=== PATIENT | female | born 1980 | race Caucasian/White ===

== ENCOUNTER 2023-09-29 10:41 | Emergency (ER) | payer OTHER, SELFPAY ==
[2023-09-29 10:57] VITALS: BP 222/116
[2023-09-29 11:23] VITALS: BMI 44.5
--- NOTE | 2023-09-29 11:24 | ED.GENMED ---
History of Present Illness
<Khanh Ward PA-C - Last Filed: 09/30/23 07:20>
General
Chief Complaint: Musculo-Skeletal Complaint
Time Seen by Provider: 09/29/23 11:13
Travel History
Have you had any contact with someone who has COVID-19?: No
Do you have any symptoms of coronavirus? Fever > 100 degrees, chills, cough, shortness of breath, sore throat, loss of taste or smell, muscle aches, or headache?: No
History of Present Illness
History of Present Illness:
42-year-old female presents emergency department for evaluation of right flank pain that began abruptly after eating a tenderness onset yesterday. The pain improved after taking ibuprofen last night however again worsened this morning. Pain is
pleuritic and radiates to the right scapula. Prior history of ectopic and partial salpingectomy, no other abdominal surgeries. Denies any chest pain or shortness of breath however pain again is pleuritic. Did have a recent URI
approximately 2 weeks ago
Past History
<Khanh Ward PA-C - Last Filed: 09/30/23 07:20>
Past History
ED Past Medical History: HTN
ED Past Surgical History: Gynecological (Laparoscopy for right ectopic 2009)
Social History
Tobacco: Non-smoker
Alcohol: Occasional
Personal:
Review of Systems
<Khanh Ward PA-C - Last Filed: 09/30/23 07:20>
Review of Systems
Allergies reviewed?: Yes
All Other Systems: ROS reviewed and negative except as documented in HPI and ROS
Phy Exam
<Khanh Ward PA-C - Last Filed: 09/30/23 07:20>
Physical Exam
Physical Exam:
GEN: Well appearing, NAD, WDWN
Eyes: PERRLA, EOMs intact, no scleral icterus
HENT: NCAT, oral mucosa moist, no JVD, no cervical adenopathy.
Lungs: CTAB, no wheezes, rales, rhonchi, normal chest wall excursion
Cardiac: RRR, no M/R/G, no peripheral edema. Radial pulses 2+ bilat
Abdomen: S, NT, ND, NABS, no masses or hepatosplenomegaly
Neuro: AO x 3, no focal deficits to BUE/BLE, normal sensation throughout
MSK: No gross deformity or ecchymosis. No edema. No digital clubbing
Skin: No rashes, petechiae. Normal color, no pallor or jaundice.
Psych: Calm, cooperative, proper hygiene
Course
<Khanh Ward PA-C - Last Filed: 09/30/23 07:20>
Orders/Labs/Results
Orders:
Orders
09/29/23 11:24
US Abdomen Complete/Upper Urgent
Comment:
Reason For Exam: biliary colic
09/29/23 12:28
Ketorolac [Toradol] 30 mg IM NOW STA
09/29/23 12:38
Mag Hydrox/Al Hydrox/Simeth [Maalox] 30 ml Phenobarb/Hyoscy/Atropine/Scop [] 10 ml Viscous Lidocaine 2% [Xylocaine Viscous Cup] 10 ml PO NOW
CR Chest - 2 Views Urgent
Comment:
Reason For Exam: RUQ pain/pleuritic pain
09/29/23 12:52
Mag Hydrox/Al Hydrox/Simeth [Maalox] 30 ml .ROUTE .STK-MED ONE
Phenobarb/Hyoscy/Atropine/Scop [] 10 ml .ROUTE .STK-MED ONE
09/29/23 12:53
Viscous Lidocaine 2% [Xylocaine Viscous Cup] 15 ml .ROUTE .STK-MED ONE
09/29/23 13:41
Ketorolac [Toradol] 30 mg IM NOW STA
09/29/23 13:46
Ketorolac [Toradol] 15 mg IV NOW STA
09/29/23 14:09
Complete Blood Count/With Diff Urgent
Comprehensive Metabolic Panel Urgent
HCG, Serum Qualitative Screen Urgent
Comment: HCG QUAL ADDED ON BY FLOOR 3:30PM 09-29-23
Lipase Urgent
09/29/23 15:08
D-Dimer Urgent
09/29/23 15:29
CT Chest Pe Study Urgent
Comment:
Reason For Exam: pleuritic R flank pain
09/29/23 15:33
Add On- LAB Urgent
Tests Added?: hcg qual
Abnormal Lab Results
09/29/23 09/29/23
14:09 15:08
Hgb 10.6 L g/dL
(12.0-16.0)
Hct 34.6 L %
(37.0-47.0)
MCV 67.4 L fL
(81.0-99.0)
MCH 20.7 L pg
(27.0-31.0)
MCHC 30.6 L g/dL
(33.0-37.0)
RDW 21.6 H %
(11.5-14.5)
Absolute Neuts (auto) 8.2 H 10^3/uL
(1.4-6.5)
Absolute Monos (auto) 0.8 H 10^3/uL
(0.1-0.6)
Neutrophils % 78.0 H %
(42.2-75.2)
Lymphocytes % 12.3 L %
(20.5-51.1)
D-Dimer 0.66 H ug/mlFEU
(0.00-0.50)
Sodium 133 L mmol/L
(135-145)
Potassium 3.4 L mmol/L
(3.5-5.1)
09/29/23 14:09
09/29/23 14:09
Vital Signs
Initial and Last Documented VS:
Initial Vital Signs
Temp Pulse Resp BP Pulse Ox
99.1 F 58 18 222/116 98
09/29/23 10:57 09/29/23 10:57 09/29/23 10:57 09/29/23 10:57 09/29/23 10:57
Last Documented Vital Signs
Temp Pulse Resp BP Pulse Ox
99.1 F 62 18 188/81 97
09/29/23 10:57 09/29/23 20:04 09/29/23 10:57 09/29/23 20:04 09/29/23 20:04
<YESSICA Del Toro - Last Filed: 09/29/23 19:23>
Orders/Labs/Results
Orders:
Orders
09/29/23 11:24
US Abdomen Complete/Upper Urgent
Comment:
Reason For Exam: biliary colic
09/29/23 12:28
Ketorolac [Toradol] 30 mg IM NOW STA
09/29/23 12:38
Mag Hydrox/Al Hydrox/Simeth [Maalox] 30 ml Phenobarb/Hyoscy/Atropine/Scop [] 10 ml Viscous Lidocaine 2% [Xylocaine Viscous Cup] 10 ml PO NOW
CR Chest - 2 Views Urgent
Comment:
Reason For Exam: RUQ pain/pleuritic pain
09/29/23 12:52
Mag Hydrox/Al Hydrox/Simeth [Maalox] 30 ml .ROUTE .STK-MED ONE
Phenobarb/Hyoscy/Atropine/Scop [] 10 ml .ROUTE .STK-MED ONE
09/29/23 12:53
Viscous Lidocaine 2% [Xylocaine Viscous Cup] 15 ml .ROUTE .STK-MED ONE
09/29/23 13:41
Ketorolac [Toradol] 30 mg IM NOW STA
09/29/23 13:46
Ketorolac [Toradol] 15 mg IV NOW STA
09/29/23 14:09
Complete Blood Count/With Diff Urgent
Comprehensive Metabolic Panel Urgent
HCG, Serum Qualitative Screen Urgent
Comment: HCG QUAL ADDED ON BY FLOOR 3:30PM 09-29-23
Lipase Urgent
09/29/23 15:08
D-Dimer Urgent
09/29/23 15:29
CT Chest Pe Study Urgent
Comment:
Reason For Exam: pleuritic R flank pain
09/29/23 15:33
Add On- LAB Urgent
Tests Added?: hcg qual
Abnormal Lab Results
09/29/23 09/29/23
14:09 15:08
Hgb 10.6 L g/dL
(12.0-16.0)
Hct 34.6 L %
(37.0-47.0)
MCV 67.4 L fL
(81.0-99.0)
MCH 20.7 L pg
(27.0-31.0)
MCHC 30.6 L g/dL
(33.0-37.0)
RDW 21.6 H %
(11.5-14.5)
Absolute Neuts (auto) 8.2 H 10^3/uL
(1.4-6.5)
Absolute Monos (auto) 0.8 H 10^3/uL
(0.1-0.6)
Neutrophils % 78.0 H %
(42.2-75.2)
Lymphocytes % 12.3 L %
(20.5-51.1)
D-Dimer 0.66 H ug/mlFEU
(0.00-0.50)
Sodium 133 L mmol/L
(135-145)
Potassium 3.4 L mmol/L
(3.5-5.1)
09/29/23 14:09
09/29/23 14:09
Vital Signs
Initial and Last Documented VS:
Initial Vital Signs
Temp Pulse Resp BP Pulse Ox
99.1 F 58 18 222/116 98
09/29/23 10:57 09/29/23 10:57 09/29/23 10:57 09/29/23 10:57 09/29/23 10:57
Last Documented Vital Signs
Temp Pulse Resp BP Pulse Ox
99.1 F 62 18 188/81 97
09/29/23 10:57 09/29/23 20:04 09/29/23 10:57 09/29/23 20:04 09/29/23 20:04
<Khanh Ward PA-C - Last Filed: 09/30/23 07:20>
MDM/Problems Addressed
MDM/Problems Addressed:
Initially was felt the pain represented biliary colic given her age and body habitus, postprandial pain however ultrasound unremarkable. The patient's labs were markable however given the pleuritic nature of her pain and lack of ability to appear
comfortable a D-dimer was obtained which was positive. A follow-up pulmonary embolism study will be obtained due to the elevated D-dimer, signed out to Tamia Leach NP pending CT study. Likely pleuritis/pleurisy in the setting of recent URI
<YESSICA Del Toro - Last Filed: 09/29/23 19:23>
MDM/Problems Addressed
MDM/Problems Addressed:
Initially was felt the pain represented biliary colic given her age and body habitus, postprandial pain however ultrasound unremarkable. The patient's labs were markable however given the pleuritic nature of her pain and lack of ability to appear
comfortable a D-dimer was obtained which was positive. A follow-up pulmonary embolism study will be obtained due to the elevated D-dimer, signed out to Tamia Leach NP pending CT study. Likely pleuritis/pleurisy in the setting of recent URI.
190: Patient is well-appearing in no acute distress not hypoxic. CAT scan shows right lower lobe atelectasis versus developing pneumonia. I spoke with patient. Patient denies any recent cough fever chills or URI illness. She had a mild cold
several weeks ago but none since. Her lungs are clear she is not hypoxic. She does have a history of high blood pressure and is on atenolol and hydrochlorothiazide. Repeat blood pressure taken by myself is 180/90. She feels that she is just
anxious being here and she has been here for a long time. She does not want anything more for discomfort she has no pain when she takes a deep breath in. Will DC with ibuprofen as she reports that for ibuprofen has worked for her recently.
<YESSICA Del Toro - Last Filed: 09/29/23 19:23>
*Critical Care Note
Total Time (30-74mins, 75-104mins- exclusive of procedures): Not Applicable
ED Attending Note
<Khanh Ward PA-C - Last Filed: 09/30/23 07:20>
-
Portions of this chart may have been created with voice recognition software.� Occasional wrong word or��sound alike� substitutions may have occurred due to the inherent limitations of voice recognition software.
Discharge Plan
Departure
Patient Disposition: Home (Routine Discharge)
Date of Disposition: 09/29/23
Time of Disposition: 19:20
Patient with high blood pressure during this ER visit?: Yes
Condition: Fair
Discharge Problem:
Pleurisy
Instructions: Pleuritic Chest Pain ED, BLOOD PRESSURE
Prescriptions:
New
diclofenac sodium 75 mg tablet,delayed release (DR/EC)
75 mg PO BID Qty: 20 0RF
No Action
atenolol 25 MG tablet
25 mg PO DAILY
hydrochlorothiazide 12.5 MG capsule
12.5 mg PO DAILY
Referrals:
Cher Lyman PA-C [Family Provider] -
Activity Restrictions/Additional Instructions:
Do deep breathing. Follow-up with family doctor the next several days for reevaluation return if any worsening of symptoms.
Continue to take your blood pressure medication as discussed and follow-up with your family doctor for reevaluation of your blood pressure.
Interventions
Interventions:
*Risk Screen - Suicide Last Done: 09/29/23 10:57
*General Assessment Last Done: 09/29/23 10:57
*Neglect/Abuse Screening Last Done: 09/29/23 10:57
ED- Fall Risk Assessment Last Done: 09/29/23 11:22
*ED COVID-19 Vaccine History Last Done: 09/29/23 19:00
*Nursing Disposition Last Done: 09/29/23 20:03
ED-Musculoskeletal Assessment Last Done: 09/29/23 11:27
Discharge Date and Time
Discharge Date/Time: 09/29/23 20:05
Print Language: MONGOLIAN
[2023-09-29] MEDS: MAALOX 30 PO (13:12)
[2023-09-29] MEDS: TORADOL 15 MG IV (14:10)
[2023-09-29 14:14] VITALS: BP 185/111
[2023-09-29 14:16] LABS: % Basophils 0.7 % (0-2); % Eosinophils 0.7 % (0-6); % Immature Granulocytes 0.4 % (0-0.5); % Lymphocytes 12.3 % (20.5-51.1); % Monocytes 7.9 % (1.7-9.3); Absolute Basophils 0.1 10^3/uL (0-0.2); Absolute Eosinophils 0.1 10^3/uL (0-0.7); Absolute Lymphocytes 1.3 10^3/uL (1.2-3.4); Absolute Monocytes 0.8 10^3/uL (0.1-0.6); Absolute Neutrophils 8.2 10^3/uL (1.4-6.5); Hematocrit 34.6 % (37.0-47.0); Hemoglobin 10.6 g/dL (12.0-16.0); Mean Corp Hgb Conc. 30.6 g/dL (33.0-37.0); Mean Corpuscular Hgb 20.7 pg (27.0-31.0); Mean Corpuscular Volume 67.4 fL (81.0-99.0); Mean Platelet Volume 8.4 fL (7.4-10.4); Nucleated Red Blood Cells % 0 %; Platelet Count 334 10^3/uL (130-400); Red Blood Cell Count 5.13 10^6/uL (4.20-5.40); Red Cell Dist. Width 21.6 % (11.5-14.5); White Blood Cell Count 10.6 10^3/uL (4.8-10.8)
[2023-09-29 14:40] LABS: ALT (SGPT) 20 U/L (0-35); AST (SGOT) 24 U/L (14-36); Albumin 4.1 g/dl (3.5-5.0); Alkaline Phosphatase 78 U/L (38-126); Blood Urea Nitrogen 10 mg/dl (7-17); Calcium 9.2 mg/dl (8.4-10.2); Carbon Dioxide 30 mmol/L (22-30); Chloride 100 mmol/L (98-107); Estimated Creatinine Clearance > 125 ml/min; Glucose 98 mg/dl (70-99); Lipase 110 U/L (23-300); Potassium 3.4 mmol/L (3.5-5.1); Sodium 133 mmol/L (135-145); Total Bilirubin 0.5 mg/dl (0.2-1.3); Total Protein 6.9 g/dl (6.3-8.2); eGFR > 60.00
[2023-09-29 15:27] LABS: D-Dimer 0.66 ug/mlFEU (0.00-0.50)
[2023-09-29 16:24] LABS: HCG, Serum Qualitative Screen Negative
[2023-09-29 20:04] VITALS: BP 188/81
== END 2023-09-29 20:05 | disposition home or self-care (01) ==
LOC: EMR 10:41
PROVIDERS: Physician Assistant; EMERGENCY PHYSICIAN Emergency Medicine; FAMILY PHYSICIAN Physician Assistant
DX: J90 Pleural effusion, not elsewhere classified (principal); I10 Essential (primary) hypertension
CPT/HCPCS: 99285; 96374; 71046; 71275; 76700; 80053; 83690; 84703; 85025; 85379; Q9967

== ENCOUNTER → 2023-11-21 14:46 | Outpatient (REF) | payer OTHER, SELFPAY | LOC: HWWDC 14:46 | PROVIDERS: ATTENDING PHYSICIAN Physician Assistant | DX: Z12.31 Encounter for screening mammogram for malignant neoplasm of breast (principal) | CPT/HCPCS: 77063; 77067 ==